=== PATIENT | male | born 1955 | race Caucasian/White ===

== ENCOUNTER → 2019-11-01 | Outpatient (CLI) | payer MEDICARE | LOC: LAB SHORT 18:40 → LAB 18:40 | DX: Z48.02 Encounter for removal of sutures (principal); L08.9 Local infection of the skin and subcutaneous tissue, unspecified; L72.0 Epidermal cyst | CPT/HCPCS: 87070; 87205 ==

== ENCOUNTER → 2020-09-20 | Outpatient (CLI) | payer MEDICARE | END | disposition home or self-care (01) | LOC: LAB SHORT 19:11 → OLS 19:11 | DX: L08.9 Local infection of the skin and subcutaneous tissue, unspecified (principal); L21.8 Other seborrheic dermatitis; L81.4 Other melanin hyperpigmentation; R60.0 Localized edema; R23.3 Spontaneous ecchymoses | CPT/HCPCS: 87070; 87075; 87186; 87205 ==